=== PATIENT | male | born 1995 | race Caucasian/White ===

== ENCOUNTER 2020-09-14 19:32 | Emergency (ER) | payer SELFPAY ==
--- NOTE | 2020-09-14 20:14 | ER ---
Nurse's Notes [facility] Name: Ayush Walters Age: 24 yrs Sex: Male : 1995 Arrival Date: 09/14/2020 Time: 19:35 Bed 15 Private MD: Diagnosis: Insomnia;Anxiety disorder, unspecified Presentation: 09/14 19:43 Chief complaint: Patient states: I am concerned of my health. I have been up late, and ca1 don't really sleep much for the past 2 years. But for the last 2 days I have not slept at all. There's a lot going on in my mind. I also have this pain on my RUQ, under the rib cage, started 2 weeks ago. I am recently out of mental health facility. Stayed there 9 days ago. Coronavirus screen: Client denies travel out of the [place] in the last 14 days. At this time, the client does not indicate any symptoms associated with coronavirus-19. Ebola Screen: Patient negative for fever greater than or equal to 101.5 degrees Fahrenheit, and additional compatible Ebola Virus Disease symptoms Patient denies exposure to infectious person. Patient denies travel to an Ebola-affected area in the 21 days before illness onset. No symptoms or risks identified at this time. Initial Sepsis Screen: Does the patient meet any 2 criteria? No. Patient's initial sepsis screen is negative. Does the patient have a suspected source of infection? No. Patient's initial sepsis screen is negative. Risk Assessment: Do you want to hurt yourself or someone else? Patient reports no desire to harm self or others. Onset of symptoms was September 14, 2020. 19:43 Method Of Arrival: Ambulatory ca1 19:43 Acuity: LOLIS 3 ca1 Historical: - Allergies: 19:49 No Known Allergies; ca1 - Home Meds: 19:49 None [Active]; ca1 - PMHx: 19:49 None; ca1 - PSHx: 19:49 Tonsillectomy; tympanoplasty; ca1 - Immunization history:: Flu vaccine is up to date. - Social history:: Smoking status: Patient reports the use of cigarette tobacco products, denies chronic smoking, but will smoke occasionally, Patient uses alcohol, only on a social basis. street drugs, marijuana. - Family history:: not pertinent. Screenin:53 Abuse screen: Denies threats or abuse. Nutritional screening: No deficits noted. ea Tuberculosis screening: No symptoms or risk factors identified. Fall Risk None identified. Assessment: 20:01 General: Appears in no apparent distress. Behavior is appropriate for age. Pain: Denies ea pain. Neuro: Level of Consciousness is awake, alert, obeys commands, Oriented to person, place, time. Cardiovascular: Patient's skin is warm and dry. Respiratory: Airway is patent Respiratory effort is even, unlabored, Respiratory pattern is regular, symmetrical. Derm: Skin is pink, warm \T\ dry. Vital Signs: 19:43 BP 145 / 90; Pulse 80; Resp 16 S; Temp 97.9(TE); Pulse Ox 99% on R/A; Weight 79.38 kg ca1 (R); Height 5 ft. 9 in. (175.26 cm) (R); 19:43 Body Mass Index 25.84 (79.38 kg, 175.26 cm) ca1 ED Course: 19:35 Patient arrived in ED. ds1 19:47 Triage completed. ca1 19:49 Arm band placed on right wrist. ca1 19:53 Leela Peterson, RN is Primary Nurse. ea 19:53 Patient has correct armband on for positive identification. Bed in low position. Call ea light in reach. 19:55 Az Calderón MD is Attending Physician. abilio 20:12 Vladimir Ceron MD is Referral Physician. abilio 20:21 No provider procedures requiring assistance completed. Patient did not have IV access ea during this emergency room visit. Administered Medications: No medications were administered Outcome: 20:13 Discharge ordered by . abilio 20:21 Discharged to home ambulatory. ea 20:21 Condition: stable 20:21 Discharge instructions given to patient, Instructed on discharge instructions, follow up and referral plans. medication usage, Demonstrated understanding of instructions, follow-up care, medications. 20:22 Patient left the ED. ea Signatures: Az Calderón MD MD cha Sanford, Demi ds1 Leela Peterson, Devika Ash RN, ea, RN RN ca1 Corrections: (The following items were deleted from the chart) 19:49 19:43 Chief complaint: Patient states: I am concerned of my health. I have been up ca1 late, and don't really sleep much for the past 2 years. But for the last 2 days I have not slept at all. There's a lot going on in my mind. I also have this pain on my RUQ, under the rib cage, started 2 weeks ago ca1
--- NOTE | 2020-09-14 20:14 | EDPHYS ---
Physician Documentation [facility] Name: Ayush Walters Age: 24 yrs Sex: Male : 1995 Arrival Date: 09/14/2020 Time: 19:35 Bed 15 Private MD: ED Physician Az Calderón HPI: 09/14 20:10 This 24 yrs old Male presents to ER via Ambulatory with complaints of Cant abilio Sleep. 20:10 The patient presents to the emergency department with anxiety, over unknown abilio circumstances. Onset: The symptoms/episode began/occurred 5 day(s) ago. Past psychiatric history: Prior diagnosis: no previous psychiatric diagnosis known. Associated signs and symptoms: Pertinent positives; anxiety. Severity of symptoms: At their worst the symptoms were mild in the emergency department the symptoms are unchanged. The patient has not experienced similar symptoms in the past. Historical: - Allergies: 19:49 No Known Allergies; ca1 - Home Meds: 19:49 None [Active]; ca1 - PMHx: 19:49 None; ca1 - PSHx: 19:49 Tonsillectomy; tympanoplasty; ca1 - Immunization history:: Flu vaccine is up to date. - Social history:: Smoking status: Patient reports the use of cigarette tobacco products, denies chronic smoking, but will smoke occasionally, Patient uses alcohol, only on a social basis. street drugs, marijuana. - Family history:: not pertinent. ROS: 20:10 Constitutional: Negative for fever, chills, and weight loss, Eyes: Negative for injury, abilio pain, redness, and discharge, ENT: Negative for injury, pain, and discharge, Neck: Negative for injury, pain, and swelling, Cardiovascular: Negative for chest pain, palpitations, and edema, Respiratory: Negative for shortness of breath, cough, wheezing, and pleuritic chest pain, Abdomen/GI: Negative for abdominal pain, nausea, vomiting, diarrhea, and constipation, Back: Negative for injury and pain, : Negative for injury, bleeding, discharge, and swelling, MS/Extremity: Negative for injury and deformity, Skin: Negative for injury, rash, and discoloration, Neuro: Negative for headache, weakness, numbness, tingling, and seizure, Allergy/Immunology: Negative for hives, rash, and allergies, Endocrine: Negative for neck swelling, polydipsia, polyuria, polyphagia, and marked weight changes, Hematologic/Lymphatic: Negative for swollen nodes, abnormal bleeding, and unusual bruising. 20:10 Psych: Positive for anxiety, insomnia. Exam: 20:10 Constitutional: This is a well developed, well nourished patient who is awake, alert, abilio and in no acute distress. Head/Face: Normocephalic, atraumatic. Eyes: Pupils equal round and reactive to light, extra-ocular motions intact. Lids and lashes normal. Conjunctiva and sclera are non-icteric and not injected. Cornea within normal limits. Periorbital areas with no swelling, redness, or edema. ENT: Nares patent. No nasal discharge, no septal abnormalities noted. Tympanic membranes are normal and external auditory canals are clear. Oropharynx with no redness, swelling, or masses, exudates, or evidence of obstruction, uvula midline. Mucous membranes moist. Neck: Trachea midline, no thyromegaly or masses palpated, and no cervical lymphadenopathy. Supple, full range of motion without nuchal rigidity, or vertebral point tenderness. No Meningismus. Chest/axilla: Normal chest wall appearance and motion. Nontender with no deformity. No lesions are appreciated. Cardiovascular: Regular rate and rhythm with a normal S1 and S2. No gallops, murmurs, or rubs. Normal PMI, no JVD. No pulse deficits. Respiratory: Lungs have equal breath sounds bilaterally, clear to auscultation and percussion. No rales, rhonchi or wheezes noted. No increased work of breathing, no retractions or nasal flaring. Abdomen/GI: Soft, non-tender, with normal bowel sounds. No distension or tympany. No guarding or rebound. No evidence of tenderness throughout. Back: No spinal tenderness. No costovertebral tenderness. Full range of motion. Skin: Warm, dry with normal turgor. Normal color with no rashes, no lesions, and no evidence of cellulitis. MS/ Extremity: Pulses equal, no cyanosis. Neurovascular intact. Full, normal range of motion. Neuro: Awake and alert, GCS 15, oriented to person, place, time, and situation. Cranial nerves II-XII grossly intact. Motor strength 5/5 in all extremities. Sensory grossly intact. Cerebellar exam normal. Normal gait. Psych: Awake, alert, with orientation to person, place and time. Behavior, mood, and affect are within normal limits. Vital Signs: 19:43 BP 145 / 90; Pulse 80; Resp 16 S; Temp 97.9(TE); Pulse Ox 99% on R/A; Weight 79.38 kg ca1 (R); Height 5 ft. 9 in. (175.26 cm) (R); 19:43 Body Mass Index 25.84 (79.38 kg, 175.26 cm) ca1 MDM: 19:55 Patient medically screened. abilio 20:11 Differential diagnosis: depression. Data reviewed: vital signs, nurses notes. Data abilio interpreted: environmental monitoring technician: not applicable for this patient encounter. rate is 80 beats/min, rhythm is regular, Pulse oximetry: on room air is 99 %. Counseling: I had a detailed discussion with the patient and/or guardian regarding: the historical points, exam findings, and any diagnostic results supporting the discharge/admit diagnosis, the need for outpatient follow up, for definitive care, a family practitioner, a psychiatrist. Administered Medications: No medications were administered Disposition: 09/14/20 20:13 Discharged to Home. Impression: Insomnia, Anxiety disorder, unspecified. - Condition is Stable. - Discharge Instructions: Insomnia, Panic Attacks, [id number]. - Prescriptions for Hydroxyzine HCl 25 mg Oral Tablet - take 1 tablet by ORAL route every 6 hours As needed; 30 tablet. - Medication Reconciliation Form, Thank You Letter, Antibiotic Education, Prescription Opioid Use form. - Follow up: Private Physician; When: 2 - 3 days; Reason: Recheck today's complaints, Continuance of care, Re-evaluation by your physician. Follow up: Vladimir Ceron MD; When: 2 - 3 days; Reason: Recheck today's complaints, Continuance of care, Re-evaluation by your physician. - Problem is new. - Symptoms have improved. Signatures: Az Calderón MD MD cha Antunez, Elena, RN RN Devika Goode RN RN ca1 Corrections: (The following items were deleted from the chart) 20:22 20:13 09/14/2020 20:13 Discharged to Home. Impression: Insomnia; Anxiety disorder, ea unspecified. Condition is Stable. Forms are Medication Reconciliation Form, Thank You Letter, Antibiotic Education, Prescription Opioid Use. Follow up: Private Physician; When: 2 - 3 days; Reason: Recheck today's complaints, Continuance of care, Re-evaluation by your physician. Follow up: Vladimir Ceron; When: 2 - 3 days; Reason: Recheck today's complaints, Continuance of care, Re-evaluation by your physician. Problem is new. Symptoms have improved. abilio
[2020-09-15 10:02] VITALS: BP 145/90; TEMP 97.9; O2SAT 99
== END 2020-09-14 20:22 | disposition home or self-care (01) ==
LOC: ER 19:32
DX: F41.9 Anxiety disorder, unspecified (principal); F17.210 Nicotine dependence, cigarettes, uncomplicated
CPT/HCPCS: 99281

== ENCOUNTER → 2023-08-25 | Emergency (ER) | payer OTHER, SELFPAY ==
[~2023-08-25] MED LIST: HYDROCODONE/APAP 10/325 TAB ONE; IBUPROFEN 400 MG TAB ONE; LIDOCAINE HCL JELLY 2% 6 ML SYRINGE TOP ONE
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
[2023-08-25 19:39] VITALS: BP 146/88; TEMP 98.2; O2SAT 100
== END ==
LOC: ER 17:28
DX: T23.202A Burn of second degree of left hand, unspecified site, initial encounter (principal)
CPT/HCPCS: 99283